=== PATIENT | male | born 1995 | race African-American/Black ===

== ENCOUNTER 2022-05-02 14:26 | Emergency (ER) | payer MEDICAID, OTHER ==
[~2022-05-02] VITALS: Ht 170.2 cm; Wt 67.0 kg
[2022-05-02] MEDS ORDERED: LIDOCAINE HCL/PF 1% 10 MG/ML 5ML VIAL INFIL ONE (14:45)
[2022-05-02] MEDS ORDERED: HYDROCODONE/ACETAMINOPHEN 5/325MG TABLET PO ONE (15:00)
[2022-05-02 16:48] VITALS: BP 128/89
== END 2022-05-02 16:49 | disposition home or self-care (01) ==
LOC: ER 14:26
DX: S61.511A Laceration without foreign body of right wrist, initial encounter (principal); S62.634A Displaced fracture of distal phalanx of right ring finger, initial encounter for closed fracture; X78.0XXA Intentional self-harm by sharp glass, initial encounter; Y93.89 Activity, other specified; Y92.89 Other specified places as the place of occurrence of the external cause
CPT/HCPCS: 12005; 73110; 73130; 99284; J3490

== ENCOUNTER 2022-05-10 11:53 | Emergency (ER) | payer OTHER ==
[~2022-05-10] VITALS: Ht 170.2 cm; Wt 67.0 kg
[2022-05-10 12:34] VITALS: BP 114/69
== END 2022-05-10 13:54 | disposition home or self-care (01) ==
LOC: ER 11:53
DX: Z48.02 Encounter for removal of sutures (principal)
CPT/HCPCS: 99281

== ENCOUNTER 2022-09-02 11:01 | Emergency (ER) | payer MEDICAID, OTHER ==
[~2022-09-02] VITALS: Ht 167.6 cm; Wt 80.0 kg
[2022-09-02 12:59] VITALS: BP 101/59
[2022-09-02] MEDS ORDERED: IBUPROFEN 600MG TABLET PO ONE (15:15)
[2022-09-02] MEDS ORDERED: IBUP-2029 MT (16:11)
== END 2022-09-02 16:41 | disposition home or self-care (01) ==
LOC: ER 11:09
DX: S52.611A Displaced fracture of right ulna styloid process, initial encounter for closed fracture (principal); X58.XXXA Exposure to other specified factors, initial encounter; Y93.89 Activity, other specified; Y92.89 Other specified places as the place of occurrence of the external cause; Y99.8 Other external cause status; J45.909 Unspecified asthma, uncomplicated
CPT/HCPCS: 29125; 73110; 99283